=== PATIENT | female | born 1940 | race Caucasian/White ===

== ENCOUNTER 2017-06-25 10:14 | Emergency (ER) | payer OTHER ==
[~2017-06-25] VITALS: Ht 160 cm; Wt 75.0 kg
[2017-06-25] MEDS ORDERED: KETOROLAC 30 MG/1 ML ONE (11:26)
[2017-06-25] MEDS ORDERED: KETOROLAC 30 MG/1 ML IM ONE (11:30)
[2017-06-25] MEDS ORDERED: GABAPENTIN 100 MG CAPSULE PO ONE (12:00)
[2017-06-25 13:16] VITALS: BP 146/66
== END 2017-06-25 13:17 | disposition home or self-care (01) ==
LOC: ED 12:45
DX: G62.9 Polyneuropathy, unspecified (principal); M25.512 Pain in left shoulder; M79.632 Pain in left forearm; M25.532 Pain in left wrist
CPT/HCPCS: 72050; 73030; 93005; 96372; 99284; J1885

== ENCOUNTER 2019-11-20 10:36 | Emergency (ER) | payer MEDICARE, OTHER ==
[~2019-11-20] VITALS: Ht 157.5 cm; Wt 69.0 kg
--- NOTE | 2019-11-20 11:09 | NUR ---
PT CAME IN CO OF HEADACHES THAT SHE HAS HAD FOR YEARS BUT TODAY ON THE BACK OF HER HEAD SHE HAS A LITTLE BUMP ON THE BACK OF HER HEAD THAT SHE SAYS SHE NOTICED ABOUT A WEEK AGO AND SAYS ITS VERY PAINFUL. AOX4. AL EXTREMTIES STRONG. BLANKET PROVIDED. CALL LIGHT WITHIN REACH. BP 163/66
[2019-11-20] MEDS ORDERED: PROMETHAZINE 25 MG/ML, 1ML IM ONE (12:00)
[2019-11-20] MEDS ORDERED: PROMETHAZINE 25 MG/ML, 1ML ONE (12:03)
[2019-11-20 12:07] VITALS: BP 153/64
--- NOTE | 2019-11-20 12:08 | NUR ---
PT RESTING IN BED. SEE MAR FOR INTERVENTIONS. NO NEEDS AT THIS TIME
== END 2019-11-20 14:17 | disposition home or self-care (01) ==
LOC: ED 13:04
DX: G43.C0 Periodic headache syndromes in child or adult, not intractable (principal); B02.9 Zoster without complications; Z88.0 Allergy status to penicillin
CPT/HCPCS: 96372; 99283; J2550